=== PATIENT | female | born 1985 | race African-American/Black ===

== ENCOUNTER 2020-11-28 16:11 | Emergency (ER) | payer OTHER ==
[2020-11-28 17:18] LABS: Bilirubin Small (Negative); Blood, Urine Negative (Negative); Clarity Clear (Clear); Glucose, Urine (Dipstick) Negative (Negative); Ketone, Urine Negative (Negative); Leukocyte Negative (Negative); Nitrite Negative (Negative); Protein, Urine (Dipstick) 30 mg/dL (Neg-Trace); Specific Gravity, Urine 1.025 (1.005-1.030); pH, Urine 5.5 (5.0-9.0)
[2020-11-28 17:21] LABS: Bacteria/HPF Rare-Few HPF (None Seen); RBC/HPF 0-3 HPF (0-3); Squamous Epithelial 0-3 HPF (0-3)
[2020-11-28 17:22] LABS: Pregnancy Test - Urine (BHCG) Negative (Negative); Pregu Control Background? CLEAR/WHITE (CLR/WHITE); Pregu Control Bar Appear? YES (CONTROL BAR); Specific Gravity 1.025 (1.002-1.036)
[2020-11-28] MEDS ORDERED: Mag-Al Plus 1200 MG/1200 MG/120 MG/30 ML UDCUP ONE (17:50)
[2020-11-28] MEDS ORDERED: Lidocaine Viscous Sol 2% 15 ml UD Cup ONE (17:50)
== END 2020-11-28 18:35 | disposition home or self-care (01) ==
LOC: MADERS 16:11
DX: K27.9 Peptic ulcer, site unspecified, unspecified as acute or chronic, without hemorrhage or perforation (principal); I10 Essential (primary) hypertension
CPT/HCPCS: 81003; 81015; 81025; 99284

== ENCOUNTER 2022-07-05 02:39 | Emergency (ER) | payer BC, OTHER ==
[2022-07-05] MEDS ORDERED: Ondansetron PF 4 MG/2 ML Vial ONE (03:00)
[2022-07-05] MEDS ORDERED: Sodium Chloride 0.9% 1,000 ML ONE (03:00)
[2022-07-05] MEDS ORDERED: Ketorolac Tromethamine 30 MG/ML VIAL ONE (03:00)
[2022-07-05 03:04] LABS: Bilirubin Negative (Negative); Blood, Urine Moderate (Negative); Clarity Cloudy (Clear); Glucose, Urine (Dipstick) Negative (Negative); Ketone, Urine Negative (Negative); Leukocyte Moderate (Negative); Nitrite Negative (Negative); Protein, Urine (Dipstick) 100 mg/dL (Neg-Trace); Urobilinogen 0.2 mg/dL (Less than 2); pH, Urine 6.5 (5.0-9.0)
[2022-07-05 03:06] LABS: Pregnancy Test - Urine (BHCG) Negative (Negative); Pregu Control Background? CLEAR/WHITE (CLR/WHITE); Pregu Control Bar Appear? YES (CONTROL BAR); Specific Gravity 1.014 (1.002-1.036)
[2022-07-05 03:11] LABS: Bacteria/HPF 1+ HPF (None Seen); Squamous Epithelial 0-3 HPF (0-3); Transitional Epithelial 0-3 HPF (None Seen); WBC/HPF Greater Than 50 HPF (0-3)
[2022-07-05 03:18] LABS: #Basophils 0.1 thou/uL (0.0-0.2); #Eosinphils 0.2 thou/uL (0.0-0.7); #Lymphocytes 1.1 thou/uL (1.20-3.40); #Monocytes 1.4 thou/uL (0.11-0.59); #Neutrophils 13.9 thou/uL (1.40-6.50); %Basophils 0.5 % (0.0-1.0); %Eosinophils 1.3 % (0.0-10.0); %Lymphocytes 6.5 % (21.0-51.0); %Monocytes 8.4 % (0.0-10.0); %Neutrophils 83.4 % (42.0-75.0); Hemoglobin 13.5 g/dL (12.0-16.0); Mean Corpuscular HGB CONC 32.3 g/dL (32.0-36.0); Mean Corpuscular Hemoglobin 25.9 pg (27.0-31.0); Mean Corpuscular Volume 80.2 fl (78.0-98.0); Platelet Count 363 10x3/uL (130-400); RBC Distribution Width 13.1 % (11.5-14.5); Red Blood Cell (RBC) Count 5.22 mill/uL (4.20-5.40); White Blood Cell (WBC) Count 16.7 10x3/uL (4.8-10.8)
[2022-07-05 03:36] LABS: ALT (SGPT) 29 U/L (8-55); AST (SGOT) 17 U/L (5-34); Alkaline Phosphatase 79 U/L (40-110); Anion Gap 13 mmol/L (10-20); BUN (Urea Nitrogen) 9 mg/dL (7.0-18.7); Bilirubin, Total 0.5 mg/dL (0.2-1.2); Calc. Creatinine Clearance 0 mL/min (70-130); Calcium 9.2 mg/dL (7.8-10.44); Carbon Dioxide 24 mmol/L (22-29); Chloride 103 mmol/L (98-107); Estimated GFR 84; Globulin 3.4 g/dL (2.4-3.5); Glucose 129 mg/dL (70-105); Lipase 21 U/L (8-78); Potassium 3.5 mmol/L (3.5-5.1); Protein, Total 7.4 g/dL (6.0-8.3); Sodium 136 mmol/L (136-145)
[2022-07-05] MEDS ORDERED: cefTRIAXone\\ROCEPHIN 1 GM VIAL ONE (05:26)
[2022-07-05] MEDS ORDERED: Sodium Chloride 0.9% 100 ML ONE (05:26)
[2022-07-05] MEDS ORDERED: Iopamidol 370 76% 100 ML VIAL ONE (08:41)
== END 2022-07-05 05:52 | disposition home or self-care (01) ==
LOC: MADERS 02:39
DX: N28.89 Other specified disorders of kidney and ureter (principal); N39.0 Urinary tract infection, site not specified; D25.9 Leiomyoma of uterus, unspecified; D72.829 Elevated white blood cell count, unspecified; I10 Essential (primary) hypertension; F17.290 Nicotine dependence, other tobacco product, uncomplicated
CPT/HCPCS: 74177; 80053; 81003; 81015; 81025; 83690; 85025; 87077; 87086; 87186; 96365; 96375; J0696; J1885; J2405; J3490; J7050; Q9967